=== PATIENT | female | born 1975 | race Caucasian/White ===

== ENCOUNTER 2017-09-18 13:07 | Day surgery (SDC) | payer OTHER ==
[~2017-09-18] VITALS: Ht 152.4 cm; Wt 69.0 kg
[~2017-09-18 13:07] MED LIST: ALBU90OI INH; ATOR20 PO; BENZ100A PO; BLOOD PRESSURE MED; CLARITIN10 MG PO; CLON.1 PO; Flonase 0.05% N16 GM; GABA100 PO; MORP30ER PO; OXYC10TA19 PO; Omeprazole20 M1 PO; Prinivil10 MG PO; RANI150 PO; SERT100 PO; SPACE CHAMBER1 EACH INH; SUCR1 PO; Systane 0.3-0.1 EACH; TRAZ100 PO; TRAZ50 PO; VITAMIN D350000 UNIT PO; Vistaril25 MG PO
== END 2017-09-18 15:26 | disposition home or self-care (01) ==
LOC: ORSCSDS 13:07
PROVIDERS: Internal Medicine Gastroenterology
PROC: 0DB68ZX Excision of Stomach, Via Natural or Artificial Opening Endoscopic, Diagnostic (ICD-10-PCS; principal; 2017-09-18 14:30)
PROC: 0DB98ZX Excision of Duodenum, Via Natural or Artificial Opening Endoscopic, Diagnostic (ICD-10-PCS; principal; 2017-09-18 14:30)
DX: R10.13 Epigastric pain (principal); K21.9 Gastro-esophageal reflux disease without esophagitis; K29.70 Gastritis, unspecified, without bleeding; R11.0 Nausea; I10 Essential (primary) hypertension; Z79.899 Other long term (current) drug therapy
CPT/HCPCS: 88305; 88342; J7120